=== PATIENT | male | born 1980 | race Two or more races ===

== ENCOUNTER 2016-11-12 12:48 | Emergency (ER) | payer MEDICAID ==
[~2016-11-12] VITALS: Ht 180.3 cm; Wt 90.9 kg
[2016-11-12 13:02] VITALS: BP 145/75
[2016-11-12 15:02] LABS: ASPARTATE AMINO TRANSFERASE 24 U/L (15-37); BLOOD UREA NITROGEN 14 mg/dL (7-18)
[2016-11-12] MEDS ORDERED: MAGNESIUM CITRATE 300ML ORAL SOL PO ONE (15:30)
[2016-11-12] MEDS ORDERED: MAGNESIUM CITRATE 300ML ORAL SOL ONE (15:45)
== END 2016-11-12 16:04 | disposition home or self-care (01) ==
LOC: ED 15:41
DX: R10.84 Generalized abdominal pain (principal); G89.29 Other chronic pain; K59.00 Constipation, unspecified; Z87.891 Personal history of nicotine dependence; Z90.49 Acquired absence of other specified parts of digestive tract
CPT/HCPCS: 36415; 74020; 80053; 83690; 85025; 99285

== ENCOUNTER 2016-12-06 17:15 | Emergency (ER) | payer MEDICAID ==
[~2016-12-06] VITALS: Ht 180.3 cm; Wt 92.9 kg
[2016-12-06 18:36] LABS: PATH.CAST-FLAG NOT PRESENT; SPERM-FLAG NOT PRESENT; SRC-FLAG NOT PRESENT; XTAL-FLAG NOT PRESENT; YLC-FLAG NOT PRESENT
[2016-12-06 18:45] VITALS: BP 145/86
[2016-12-06 19:56] LABS: BLOOD UREA NITROGEN 18 mg/dL (7-18)
[2016-12-06 20:03] LABS: ASPARTATE AMINO TRANSFERASE 40 U/L (15-37)
== END 2016-12-06 20:27 | disposition home or self-care (01) ==
LOC: ED 18:16
DX: K59.00 Constipation, unspecified (principal); Z90.49 Acquired absence of other specified parts of digestive tract; Z87.891 Personal history of nicotine dependence
CPT/HCPCS: 36415; 74000; 80053; 81001; 83690; 85025; 87086

== ENCOUNTER 2017-04-21 18:06 | Emergency (ER) | payer MEDICAID ==
[~2017-04-21] VITALS: Ht 177.8 cm; Wt 87.9 kg
[2017-04-21 18:59] VITALS: BP 146/89
== END 2017-04-21 19:49 | disposition home or self-care (01) ==
LOC: ED 19:43
DX: M25.532 Pain in left wrist (principal); G89.11 Acute pain due to trauma; Z90.49 Acquired absence of other specified parts of digestive tract
CPT/HCPCS: 29125

== ENCOUNTER 2017-07-13 12:36 | Emergency (ER) | payer MEDICAID ==
[~2017-07-13] VITALS: Ht 180.3 cm; Wt 88.6 kg
[2017-07-13 12:56] VITALS: BP 144/74
== END 2017-07-13 14:47 | disposition home or self-care (01) ==
LOC: ED 14:30
DX: R21 Rash and other nonspecific skin eruption (principal); Z90.49 Acquired absence of other specified parts of digestive tract
CPT/HCPCS: 99282